=== PATIENT | female | born 1970 | race Caucasian/White ===

== ENCOUNTER → 2018-05-25 16:11 | Outpatient (REF) | payer OTHER, SELFPAY | LOC: LAB 16:11 | PROVIDERS: Visit Provider Family Medicine | DX: R05 Cough (principal); R50.9 Fever, unspecified | CPT/HCPCS: 87400 ==

== ENCOUNTER → 2018-06-29 09:54 | Outpatient (CLI) | payer OTHER, SELFPAY ==
--- NOTE | 2018-06-29 12:01 | DIET.PN ---
DIABETES Nutrition Initial Assessment:? ASSESS:?? 48 yof referred for diabetes education. Pt has had DM edu in the past through the [facility]. Reports she has done Teresa Usama as well as weight watchers with positive results. Admits since moving to [place] x 2 yrs ago she has not followed any particular meal plan and has discontinued exercise. She is concerned elevated a1c is related to PCOS and recent hormone changes. Reports she has maintained an a1c in the prediabetes range for several years after having gestational diabetes and her last result was much higher than normal. She does have a monitor but has not checked in several years as she was not instructed to. LABS: Per pt report:? A1c: 8.1 ? MEDS:?? metformin 750 XR bid ? DIET: Likes breads and pastas, sugar free foods, lots of vegetables? Weight: 225 Ht: 73? BMI: 29.68 ? Exercise:? none NUTRITION DX 1. Altered Nutrition related labs related to impaired glucose metabolism, lack of previous exposure to accurate nutrition information as evidenced by pt report, dx of diabetes, previous diet high in refined carbohydrates.? INTERVENTION(s): 1. Discussed pathophysiology of diabetes. Reviewed A1c and its correlation to blood glucose numbers. Discussed recommended BG ranges. 2. Discussed importance of self-monitoring, how often, and when to check. Provided demonstration on use of glucometer. 3. Reviewed hyper/hypoglycemia and treatment. 4. Reviewed safe disposal of equipment (strip/lancets/insulin needles). 5. Discussed impact of nutrition/diet on blood sugar control.? Discussed fed versus non-fed state.?? 6. Discussed the effect of carbohydrates/protein/fat on blood sugar control.? Stressed importance of consistent carbohydrate intake at each meal and provided instructions for recommended servings/portions of carbohydrates/protein per meal. Provided pt with educational material. 7. Reviewed carbohydrate counting and measuring carbohydrate content via serving sizes and reading nutrition labels.? Provided handouts.?? 8. Discussed the difference between simple versus complex carbohydrates and the effect of fiber on blood sugar control.? Discussed various methods to increase fiber content in diet. 9. Stressed importance of meal timing and not going >4-5 hours between meals. Encouraged adding protein to each meal to support glucose control. Provided list of protein foods. Discussed best protein options for heart health and to alleviate hunger. Patient agreeable. 10. Discussed healthy weight loss through diet and exercise to increase lean muscle mass.? Pt agreeable to walking daily. SMART Goals 1. A1c <7.0 by next appt through dietary changes and beginning physical activity. 2. Begin exercising 20 min/day 3x/wk and increase as this becomes more routine. MONITOR/EVALUATE: Anticipate good compliance.? Nutrition follow up schedule for 1 mo to review BG, weight, food record and discuss protein/fat. Pt will request new a1c after next nutrition f/u.
== END ==
PROVIDERS: Visit Provider Nurse Practitioner Family
DX: E11.9 Type 2 diabetes mellitus without complications (principal); Z79.84 Long term (current) use of oral hypoglycemic drugs
CPT/HCPCS: 97802

== ENCOUNTER → 2018-08-03 10:03 | Outpatient (CLI) | payer OTHER, SELFPAY ==
--- NOTE | 2018-08-03 11:30 | DIET.PN ---
INDIVIDUAL NUTRITION ASSESSMENT? ? ASSESS:?48 yo?seen for diabetes nutrition F/U. Pt has been keeping of food log since last appointment and has began checking BG 1-2x/day. States her BG is much higher than she expected it would be. Is anxious to have new labs done and has requested additional dietary visits before having new A1c as she would like to control BG w/ diet and exercise rather than increase medication management. ? LABS: A1c: 8.1 FB-190 2 hr PP:??170-190 ? Weight: 220 (down 5 #) ? DIET: B: 2 eggs, toast w/ SF jelly L: lean cuisine D: meatloaf, corn on the cob Ev Sn: blueberries Meds: Metf 750 mg XR BID ? EXERCISE:? started walking and keeping track of steps. Is getting between 0897-5240 steps per day. ? NUTRITION Dx? 1. Altered nutrition related labs r/t type 2 DM, inconsistent carbohydrate intake as evidenced by pt report, dietary recall.?? ? INTERVENTION? 1. Reviewed blood sugar log and implications/reasons for elevated/decreased blood sugar.? Pt with good understanding.? 2. Reviewed carbohydrate counting and importance of consistent carbohydrate intake.? 3. Reviewed meal intake and importance of balanced meals (doris to prevent overeating).??? 4. Provided information on fat/protein intake and ways to limit saturated fat. 5. Encouraged pt to add resistance training to exercise routine at least 2x/wk. MONITOR/EVALUATE: Pt receptive to information provided.? F/u Scheduled for 2 weeks.
== END ==
PROVIDERS: Visit Provider Family Medicine
DX: E11.9 Type 2 diabetes mellitus without complications (principal)
CPT/HCPCS: 97803